=== PATIENT | female | born 1975 | race Caucasian/White ===

== ENCOUNTER 2019-03-05 06:41 | Day surgery (SDC) | payer BC ==
[~2019-03-05 06:41] MED LIST: CEFAZOLIN SODIUM 1 GM in DEXTROSE 5%-WATER 50 ML IV PRN
[2019-03-05] MEDS ORDERED: PROPOFOL INJ 200 MG/20 ML VIAL IV ONE (06:54)
[2019-03-05] MEDS ORDERED: FENTANYL CITRATE INJ/PF 100 MCG/2 ML AMPUL ONE (06:54)
[2019-03-05] MEDS ORDERED: MIDAZOLAM 2 MG/2 ML INJ ONE (06:54)
[2019-03-05 07:31] LABS: HEMATOCRIT 36.9 % (36.0-47.0); HEMOGLOBIN 12.5 g/dL (12.0-15.5); MEAN CORPUSCULAR HEMOGLOBIN 31.8 pg (27.0-33.4); MEAN CORPUSCULAR HGB CONC 33.8 g/dL (32.0-36.0); MEAN CORPUSCULAR VOLUME 94 fl (80-97); PLATELET COUNT 438 10^3/uL (150-450); RED BLOOD COUNT 3.91 10^6/uL (3.72-5.28); RED CELL DISTRIBUTION WIDTH 13.9 % (11.5-14.0); WHITE BLOOD COUNT 4.8 10^3/uL (4.0-10.5)
[2019-03-05] MEDS ORDERED: LIDOCAINE 1%/EPINEPHRINE INJ 20 ML VIAL ONE (09:14)
[2019-03-05] MEDS ORDERED: MICROFIBRILLAR COLLAGEN 1 GM PACK ONE (09:14)
[2019-03-05] MEDS ORDERED: ONDANSETRON HCL INJ/PF 4 MG/2 ML SDV IV PRN (09:56)
[2019-03-05] MEDS ORDERED: OXYCODONE-ACETAMINOPHEN 5-325 MG TABLET PO PRN ×2 (09:56)
[2019-03-05] MEDS ORDERED: MEPERIDINE HCL/PF INJ 25 MG/1 ML DISP.SYRIN IV PRN (09:56)
[2019-03-05] MEDS ORDERED: DIPHENHYDRAMINE HCL 50 MG/ML VIAL IV PRN (09:56)
[2019-03-05] MEDS ORDERED: MORPHINE SULFATE 10 MG/ML INJ IV PRN (09:56)
[2019-03-05] MEDS ORDERED: FENTANYL CITRATE INJ/PF 100 MCG/2 ML AMPUL IV PRN ×3 (09:56)
--- NOTE | 2019-03-05 10:21 | Discharge Summary ---
Discharge Summary (SDC) - Discharge Final Diagnosis: Fibroadenoma left breast Date of Surgery: 03/05/19 Discharge Date: 03/05/19 Condition: Good Treatment or Instructions: Wear supportive bra; may shower; take Tylenol Motrin or Toradol as prescribed as needed pain. Return to [facility] in 1 to 2 weeks to follow-up with Dr. Valdez. No heavy lifting pushing pulling or excessive physical activity Referrals: KG BELLO MD [Primary Care Provider] - Discharge Diet: As Tolerated Discharge Activity: Activity As Tolerated Home Care Assistance: None Needed Report the Following to Your Physician Immediately: Shortness of Breath, Increase in Pain, Fever over 101 Degrees
--- NOTE | 2019-03-05 10:25 | Operative Report ---
Operative Report DATE OF SURGERY: 03/05/19 PREOPERATIVE DIAGNOSIS: Fibroadenoma left breast; bilateral breast prostheses POSTOPERATIVE DIAGNOSIS: Same OPERATION: Ultrasound directed open excisional left breast biopsy consistent with fibroadenoma SURGEON: MAU DIAZ ANESTHESIA: LMAC TISSUE REMOVED OR ALTERED: Fibroadenoma left breast COMPLICATIONS: None QUANTITATIVE BLOOD LOSS: 10 INTRAOPERATIVE FINDINGS: See below PROCEDURE: The patient was seen in the preop holding her with the left breast was marked. She was then taken the main operating room where LMAC anesthesia was induced, left arm abducted, left breast prepped draped sterile fashion with Betadine. Surgical plan surgical timeout were conducted. Ultrasound directed open excisional biopsy was now performed. The target lesion was identified in the 9 o'clock position 3 cm from the areolar edge of the left breast. The skin along the areolar border was anesthetized with 1% plain lidocaine. Approximately 2-1/2 cm incision was made in a curvilinear fashion from the 8:00 to the 10 o'clock position of the left breast. Using ultrasound as a real-time guide, the left breast fibroadenoma was excised using electrocautery. 0 silk sutures placed in the substance of the mass to facilitate excision. Move, suture removed, the specimen sent for permanent analysis to pathology. Wound closed in layers with 2-0 Vicryl and 3-0 Vicryl , and Dermabond glue. Patient tolerated the procedure well, taken to recovery in stable condition.
[2019-03-05] MEDS ORDERED: KETOROLAC TROMETHAMINE 60 MG/2 ML SDV ONE (10:28)
[2019-03-05] MEDS ORDERED: OXYCODONE-ACETAMINOPHEN 5-325 MG TABLET ONE (10:48)
[2019-03-05 12:22] VITALS: BP 120/80
== END 2019-03-05 11:51 | disposition home or self-care (01) ==
LOC: OROUT 06:41
PROVIDERS: ATTEND Surgery
DX: D24.2 Benign neoplasm of left breast (principal); N60.42 Mammary duct ectasia of left breast; Z98.82 Breast implant status; Z80.3 Family history of malignant neoplasm of breast; Z87.891 Personal history of nicotine dependence
CPT/HCPCS: 36415; 85027; 81025; 00400; 19120; J2250; J0690; J1885; J3010; J3490; J7060; J2704; 400

== ENCOUNTER 2019-05-16 05:47 | Day surgery (SDC) | payer BC ==
[2019-05-05 09:54] LABS: APPEARANCE,URINE CLEAR; BILIRUBIN,URINE NEGATIVE (NEGATIVE); COLOR,URINE YELLOW; GLUCOSE, URINE NEGATIVE (NEGATIVE); KETONES,URINE 20 mg/dL (NEGATIVE); LEUKOCYTE ESTERASE,URINE NEGATIVE (NEGATIVE); NITRITE,URINE NEGATIVE (NEGATIVE); PROTEIN,URINE NEGATIVE (NEGATIVE); URINE SPECIFIC GRAVITY 1.017; UROBILINOGEN,URINE NEGATIVE mg/dL (<2.0)
[2019-05-05 09:55] LABS: HEMATOCRIT 38.9 % (36.0-47.0); HEMOGLOBIN 13.4 g/dL (12.0-15.5); MEAN CORPUSCULAR HEMOGLOBIN 32.4 pg (27.0-33.4); MEAN CORPUSCULAR HGB CONC 34.3 g/dL (32.0-36.0); MEAN CORPUSCULAR VOLUME 95 fl (80-97); PLATELET COUNT 369 10^3/uL (150-450); RED BLOOD COUNT 4.12 10^6/uL (3.72-5.28); RED CELL DISTRIBUTION WIDTH 14.7 % (11.5-14.0); WHITE BLOOD COUNT 4.8 10^3/uL (4.0-10.5)
[2019-05-05 10:15] LABS: ANION GAP 16 (5-19); BLOOD UREA NITROGEN 11 mg/dL (7-20); CARBON DIOXIDE 21 mmol/L (22-30); CHLORIDE 103 mmol/L (98-107); GLUCOSE 80 mg/dL (75-110); POTASSIUM 4.2 mmol/L (3.6-5.0)
[~2019-05-16 05:47] MED LIST changes: +CEFAZOLIN 1 GM/D5W RTU 1 GM/50 ML RTUPB IV ONE; +CEFAZOLIN 1 GM/D5W RTU 1 GM/50 ML RTUPB IV PRN; -CEFAZOLIN SODIUM 1 GM in DEXTROSE 5%-WATER 50 ML IV PRN; +LACTATED RINGERS 1000 ML IV PRN; +LIDOCAINE 0.5% INJ-PF (5 MG/ML) 50 ML SDV SUBCUT PRN
[2019-05-16] MEDS ORDERED: MIDAZOLAM 2 MG/2 ML INJ ONE (06:22)
[2019-05-16] MEDS ORDERED: FENTANYL CITRATE INJ/PF 100 MCG/2 ML AMPUL ONE (06:22)
[2019-05-16] MEDS ORDERED: PROPOFOL INJ 200 MG/20 ML VIAL IV ONE (06:22)
[2019-05-16] MEDS ORDERED: ONDANSETRON HCL INJ/PF 4 MG/2 ML SDV ONE (06:22)
[2019-05-16] MEDS ORDERED: SCOPOLAMINE HYDROBROMIDE 1.5 MG PATCH.TD72 ONE (07:06)
[2019-05-16] MEDS ORDERED: LIDOCAINE 1% INJ-PF (10 MG/ML) 30 ML SDV ONE (07:10)
[2019-05-16] MEDS ORDERED: LIDOCAINE 1%/EPINEPHRINE INJ 20 ML VIAL ONE (07:10)
[2019-05-16] MEDS ORDERED: MEPERIDINE HCL/PF INJ 25 MG/1 ML DISP.SYRIN IV PRN (07:25)
[2019-05-16] MEDS ORDERED: PROMETHAZINE HCL INJ 25 MG/1 ML VIAL IV PRN ×2 (07:25)
[2019-05-16] MEDS ORDERED: DIPHENHYDRAMINE HCL 50 MG/ML VIAL IV PRN (07:25)
[2019-05-16] MEDS ORDERED: FENTANYL CITRATE INJ/PF 100 MCG/2 ML AMPUL IV PRN ×3 (07:25)
[2019-05-16] MEDS ORDERED: MORPHINE SULFATE 10 MG/ML INJ IV PRN (07:25)
[2019-05-16] MEDS ORDERED: ONDANSETRON HCL INJ/PF 4 MG/2 ML SDV IV PRN (07:25)
[2019-05-16] MEDS ORDERED: KETOROLAC TROMETHAMINE INJ/PF 30 MG/1 ML SDV ONE (07:57)
[2019-05-16] MEDS ORDERED: ACETAMINOPHEN 1,000 MG/100 ML RTUPB IV ONE (07:58)
[2019-05-16] MEDS: FENTANYL CITRATE INJ/PF 100 MCG/2 ML AMPUL ONE ×2 (08:08→08:13)
[2019-05-16] MEDS ORDERED: PROMETHAZINE HCL INJ 25 MG/1 ML VIAL IM PRN (08:30)
[2019-05-16] MEDS ORDERED: MORPHINE INJ 4 MG DOSE (EDIT ROUTE) INJ PRN (08:30)
[2019-05-16] MEDS ORDERED: OXYCODONE-ACETAMINOPHEN 5-325 MG TABLET PO PRN (08:30)
[2019-05-16] MEDS ORDERED: OXYCODONE-ACETAMINOPHEN 5-325 MG TABLET ONE (08:47)
--- NOTE | 2019-05-16 09:09 | Operative Report ---
Operative Report DATE OF SURGERY: 05/16/19 PREOPERATIVE DIAGNOSIS: Menorrhagia POSTOPERATIVE DIAGNOSIS: Menorrhagia OPERATION: Hysteroscopic NovaSure ablation SURGEON: DALE CAREY ANESTHESIA: LMAC TISSUE REMOVED OR ALTERED: None COMPLICATIONS: None ESTIMATED BLOOD LOSS: 5 mL's INTRAOPERATIVE FINDINGS: Normal endometrial cavity measured 5.5 cm length 4.65 cm with. No endometrial polyps or fibroids were appreciated no adnexal masses were noted PROCEDURE: INDICATIONS FOR PROCEDURE: The patient had abnormal uterine bleeding for several months unresponsive to usual outpatient management. The usual risks of bleeding, infection, anesthesia, and damage to organs and tissues had been discussed with the patient and understood. PROCEDURE: The patient was taken to the operating room, placed in a modified lithotomy position. After adequate anesthesia was ascertained, we prepped and draped in the usual manner for a hysteroscopy . Paracervical block done. The cervix readily admitted dilators. A single-tooth tenaculum was placed on the anterior lip of the cervix after anesthesia was instilled. Hysteroscopy ensued. A endometrial cavity was noted to be normal. The measurements were taken and the NovaSure device was deployed and fired for approximately 1 minute and 30 seconds burn. Re-hysteroscopy demonstrated good uterine integrity as was confirmed pre-burn with the NovaSure device. Bleeding was nil at the completion of the procedure .
[2019-05-16 09:49] VITALS: BP 147/96
[2019-05-16] MEDS ORDERED: IBUPROFEN 800 MG TABLET PO SCH (14:00)
== END 2019-05-16 09:48 | disposition home or self-care (01) ==
LOC: OROUT 05:47
PROVIDERS: ATTEND Specialist
DX: N94.4 Primary dysmenorrhea (principal)
CPT/HCPCS: 86900; 86901; 36415 ×2; 86850; 84703; 85027; 80048; 81001; 58563; J2250; J0690; J3010; J3490; J1885; J2405; J2704; J0131